=== PATIENT | female | born 1950 | race Caucasian/White ===

== ENCOUNTER → 2023-08-13 06:58 | Outpatient (REF) | payer MEDICARE, OTHER, SELFPAY | LOC: WDC 06:58 | PROVIDERS: ATTENDING PHYSICIAN Nurse Practitioner Adult Health | DX: Z12.31 Encounter for screening mammogram for malignant neoplasm of breast (principal) | CPT/HCPCS: 77063; 77067 ==

== ENCOUNTER 2023-10-24 17:36 | Emergency (ER) | payer MEDICARE, OTHER, SELFPAY ==
[2023-10-24 17:44] VITALS: BP 167/102
[2023-10-24 18:31] VITALS: BP 135/71; BMI 24.5
--- NOTE | 2023-10-24 19:45 | ED.GENMED ---
History of Present Illness
General
Chief Complaint: Headache
Source: patient
Exam Limitations: none
Time Seen by Provider: 10/24/23 19:36
History of Present Illness
History of Present Illness:
See MDM
Past History
Past History
ED Past Medical History: Asthma and HTN
ED Past Surgical History: Other (Gastric bypass)
Social History
Tobacco: Non-smoker
Alcohol: None
Phy Exam
Physical Exam
Physical Exam:
See MDM
Course
Orders/Labs/Results
Orders:
Orders
10/24/23 18:30
CT Head W/o Iv Contrast Urgent
Comment:
Reason For Exam: blurred vision
10/24/23 19:44
0.9% Sodium Chloride 1000 ml [Nss] 1,000 ml IV BOLUS
Butalb/Acetaminophen/Caffeine [Fioricet] 1 tab PO NOW STA
10/24/23 20:27
CRP [C-Reactive Protein] Urgent
Complete Blood Count/With Diff Urgent
Comprehensive Metabolic Panel Urgent
ESR [Erythrocyte Sed Rate] Urgent
Abnormal Lab Results
10/24/23
20:27
WBC 2.9 L 10^3/uL
(4.8-10.8)
RBC 3.78 L 10^6/uL
(4.20-5.40)
Hct 36.1 L %
(37.0-47.0)
MCH 33.3 H pg
(27.0-31.0)
Absolute Lymphs (auto) 1.1 L 10^3/uL
(1.2-3.4)
Monocytes % 9.8 H %
(1.7-9.3)
ESR 28 H mm/hour
(0-20)
Chloride 96 L mmol/L
(98-107)
Carbon Dioxide 33 H mmol/L
(22-30)
AST 38 H U/L
(14-36)
10/24/23 20:27
10/24/23 20:27
Vital Signs
Initial and Last Documented VS:
Initial Vital Signs
Temp Pulse Resp BP Pulse Ox
98.1 F 78 16 167/102 99
10/24/23 17:44 10/24/23 17:44 10/24/23 17:44 10/24/23 17:44 10/24/23 17:44
Last Documented Vital Signs
Temp Pulse Resp BP Pulse Ox
98.5 F 82 16 135/71 100
10/24/23 18:31 10/24/23 18:31 10/24/23 18:31 10/24/23 18:31 10/24/23 18:31
MDM/Problems Addressed
Differential Diagnosis Includes:
HPI and MDM Narrative:
72-year-old female presenting with headache and intermittent blurry vision. She was recently diagnosed with COVID a few days ago after returning home from a cruise ship. Patient states the headache is unrelieved with Tylenol. She cannot take
NSAIDs due to gastric bypass. She states she had left-sided blurry vision yesterday but is resolving on its own today.
CT was performed prior to my evaluation. CT head negative. Will give dose of Fioricet for headache. Although she has no blurry vision now, she has mild tenderness to left temporal artery palpation. Symptoms are still likely related to COVID but
will obtain ESR and CRP to rule out temporal arteritis
Physical exam
General: Well appearing and non-toxic
HEENT: protecting airway. Pupils equal reactive. EOMI. Mild tenderness to palpation of left temporal artery region
Neck: supple
CV: No evidence of cyanosis
Resp: No accessory muscle use
Abd: Non-distended
Extremities: No deformities
Neuro: alert
Psych: Normal affect
Skin: Intact
Problems Addressed including Acute and Chronic Conditions affecting care:
1. Headache
Acuity: acute
Prognosis: stable
Details: Likely in the setting of COVID. Will give Fioricet. Given that there is tenderness around the temporal artery area, will obtain ESR and CRP
Updates
On reassessment, headache is resolving. CRP within normal limits indicating giant cell arteritis less likely. ESR is only mildly elevated and likely related to active COVID infection. Discussed follow-up with PCP
Differential Diagnosis (but not limited to): Sinus headache, COVID, temporal arteritis
Testing considered: CTA but she has no focal neurodeficits
Drug therapy (if applicable): OTC meds, please see d/c instruction regarding Rx drugs
Amount and/or Complexity of Data Reviewed
Clinical info obtained from: Patient
External data reviewed: N/A
Labs I independently reviewed (but not limited to): CRP within normal notes. Leukopenia likely related to COVID
Radiology: The CT scan was personally and independently reviewed. In addition, official CT report reviewed.
Pulse Ox: not hypoxic
EKG independently reviewed: N/A
[place]ker: N/A
Critical Care: N/A
Risk of Complication:
Social Determinants of health: Good social support
Discussed with other providers: N/A
Escalation of Care includes Admit/Obs: After being observed in the Emergency Department, pt stable for discharge.
Occasional wrong word or 'sound a like' substitutions may have occurred due to the inherent limitations of voice recognition software. Read the chart carefully and recognize, using context, where substitutions have occurred.
*Critical Care Note
Total Time (30-74mins, 75-104mins- exclusive of procedures): Not Applicable
ED Attending Note
-
Portions of this chart may have been created with voice recognition software.� Occasional wrong word or��sound alike� substitutions may have occurred due to the inherent limitations of voice recognition software.
Discharge Plan
Departure
Patient Disposition: Home (Routine Discharge)
Date of Disposition: 10/24/23
Time of Disposition: 22:34
Patient with high blood pressure during this ER visit?: No
Discharge Problem:
Headache, COVID
Instructions: Headache, Adult (DC)
Prescriptions:
New
icdxdoqqek-upcorpmijvjay-rqzu [Fioricet] 50-300-40 mg capsule
1 cap PO BID Qty: 10 0RF
No Action
ipratropium bromide 1 SPRAY spray,non-aerosol
1 spray inhalation PRN PRN (Reason: allergies)
Centrum Complete 1 EACH tablet
1 ea PO DAILY
Probiotic and Acidophilus 1 EACH capsule
1 ea PO DAILY
polyethylene glycol 3350 17 GRAMS powder in packet
17 grams PO DAILY
calcium carbonate-vitamin D3 1 EACH tablet
2 ea PO DAILY
cholecalciferol (vitamin D3) [Vitamin D3] 125 mcg (5,000 unit) Tablet
125 mcg PO DAILY
omeprazole magnesium 20 mg Capsule,Delayed Release(Dr/Ec)
20 mg PO DAILY
docusate sodium 100 MG capsule
100 mg PO DAILY
vitamin H24-zbwwh acid 1,000-400 mcg Lozenge
1 lima SUBLINGUAL .3TIMESAWEEK
mupirocin 2 % ointment
1 applic topical BID Qty: 1 0RF
Patient Comments:
last dose was this am, 03/23/22
ondansetron HCl 4 mg tablet
4 mg PO Q6H PRN (Reason: nausea and vomiting) Qty: 20 0RF
acetaminophen [Acetaminophen Extra Strength] 500 mg tablet
1,000 mg PO Q6H Qty: 30 0RF
Rx Instructions:
DO NOT exceed >4000 mg daily.
docusate sodium [Colace] 100 mg capsule
100 mg PO BID Qty: 30 0RF
senna 8.6 mg capsule
17.2 mg PO BID Qty: 30 0RF
lisinopril 5 MG tablet
10 mg PO DAILY Qty: 1 0RF
Rx Instructions:
HOLD IF systolic blood pressure <130 while on Oxycodone
aspirin 325 mg capsule
81 mg PO DAILY
Rx Instructions:
Take daily x4 weeks for blood clot prevention; then resume Aspirin 81 mg daily.
Referrals:
Mnoica Barros CRNP [Family Provider] -
Activity Restrictions/Additional Instructions:
Please return for any worsening symptoms.
You may return at any time if you have further concerns.
Please follow up with your doctor at the first available appointment, preferably this week.
Thank you for choosing [facility].
Interventions
Interventions:
*Risk Screen - Suicide Last Done: 10/24/23 18:31
*General Assessment Last Done: 10/24/23 18:31
*Neglect/Abuse Screening Last Done: 10/24/23 18:31
ED- Fall Risk Assessment Last Done: 10/24/23 18:31
*ED COVID-19 Vaccine History Last Done: 10/24/23 18:31
ED- Neurological Assessment Last Done: 10/24/23 18:31
Discharge Date and Time
Print Language: MACEDONIAN
[2023-10-24] MEDS: FIORICET 1 TAB PO ×2 (19:57→23:52)
[2023-10-24 20:15] VITALS: BP 169/88
[2023-10-24] MEDS: NSS 1000 IV (20:26)
[2023-10-24 20:37] LABS: % Basophils 0.7 % (0-2); % Eosinophils 1.7 % (0-6); % Immature Granulocytes 0.3 % (0-0.5); % Monocytes 9.8 % (1.7-9.3); % Neutrophils 49.5 % (42.2-75.2); Absolute Eosinophils 0.1 10^3/uL (0-0.7); Absolute Lymphocytes 1.1 10^3/uL (1.2-3.4); Absolute Monocytes 0.3 10^3/uL (0.1-0.6); Absolute Neutrophils 1.4 10^3/uL (1.4-6.5); Hematocrit 36.1 % (37.0-47.0); Hemoglobin 12.6 g/dL (12.0-16.0); Mean Corp Hgb Conc. 34.9 g/dL (33.0-37.0); Mean Corpuscular Hgb 33.3 pg (27.0-31.0); Mean Corpuscular Volume 95.5 fL (81.0-99.0); Mean Platelet Volume 9.1 fL (7.4-10.4); Nucleated Red Blood Cells % 0 %; Platelet Count 256 10^3/uL (130-400); Red Blood Cell Count 3.78 10^6/uL (4.20-5.40); Red Cell Dist. Width 12.6 % (11.5-14.5); White Blood Cell Count 2.9 10^3/uL (4.8-10.8)
[2023-10-24 20:56] LABS: ALT (SGPT) 19 U/L (0-35); AST (SGOT) 38 U/L (14-36); Albumin 4.1 g/dl (3.5-5.0); Alkaline Phosphatase 85 U/L (38-126); Blood Urea Nitrogen 8 mg/dl (7-17); Calcium 9.3 mg/dl (8.4-10.2); Carbon Dioxide 33 mmol/L (22-30); Chloride 96 mmol/L (98-107); Estimated Creatinine Clearance 72 ml/min; Glucose 88 mg/dl (70-99); Potassium 3.9 mmol/L (3.5-5.1); Sodium 139 mmol/L (135-145); Total Bilirubin 0.4 mg/dl (0.2-1.3); Total Protein 6.6 g/dl (6.3-8.2); eGFR > 60.00
[2023-10-24 21:00] VITALS: BP 142/78
[2023-10-24 21:00] LABS: C-Reactive Protein < 5.00 mg/L (0.0-10.00)
[2023-10-24 21:43] LABS: Erythrocyte Sed Rate 28 mm/hour (0-20)
[2023-10-24 22:00] VITALS: BP 137/76
== END 2023-10-24 23:19 | disposition home or self-care (01) ==
LOC: EMR 17:36
PROVIDERS: EMERGENCY PHYSICIAN Student in an Organized Health Care Education/Training Program; FAMILY PHYSICIAN Nurse Practitioner Adult Health
DX: U07.1 COVID-19 (principal); R51.9 Headache, unspecified
CPT/HCPCS: 99284; 96360; 70450; 80053; 85025; 85652; 86140

== ENCOUNTER 2024-03-22 09:54 | Emergency (ER) | payer MEDICARE, OTHER, SELFPAY ==
[2024-03-22] VITALS (9 sets, daily range): BP systolic 139–160; BP diastolic 68–93; PULSE 78–91; BMI 28.4
[2024-03-22 11:33] LABS: % Basophils 1.1 % (0-2); % Eosinophils 0.9 % (0-6); % Immature Granulocytes 0.4 % (0-0.5); % Lymphocytes 17.6 % (20.5-51.1); % Monocytes 7.4 % (1.7-9.3); % Neutrophils 72.6 % (42.2-75.2); Absolute Basophils 0.1 10^3/uL (0-0.2); Absolute Lymphocytes 0.8 10^3/uL (1.2-3.4); Absolute Monocytes 0.3 10^3/uL (0.1-0.6); Absolute Neutrophils 3.4 10^3/uL (1.4-6.5); Hemoglobin 13.2 g/dL (12.0-16.0); Mean Corp Hgb Conc. 33.8 g/dL (33.0-37.0); Mean Corpuscular Volume 94.7 fL (81.0-99.0); Mean Platelet Volume 8.6 fL (7.4-10.4); Nucleated Red Blood Cells % 0 %; Platelet Count 330 10^3/uL (130-400); Red Blood Cell Count 4.12 10^6/uL (4.20-5.40); Red Cell Dist. Width 12.2 % (11.5-14.5); White Blood Cell Count 4.6 10^3/uL (4.8-10.8)
[2024-03-22 11:43] LABS: ALT (SGPT) 17 U/L (0-35); AST (SGOT) 34 U/L (14-36); Albumin 4.3 g/dl (3.5-5.0); Alkaline Phosphatase 89 U/L (38-126); Blood Urea Nitrogen 10 mg/dl (7-17); Calcium 9.7 mg/dl (8.4-10.2); Carbon Dioxide 33 mmol/L (22-30); Chloride 96 mmol/L (98-107); Estimated Creatinine Clearance 72 ml/min; Glucose 101 mg/dl (70-99); Potassium 4.1 mmol/L (3.5-5.1); Sodium 133 mmol/L (135-145); Total Bilirubin 0.7 mg/dl (0.2-1.3); Total Protein 7.2 g/dl (6.3-8.2); eGFR > 60.00
--- NOTE | 2024-03-22 14:47 | ED.GENMED ---
History of Present Illness
General
Chief Complaint: Blood Pressure Problem
Source: patient and family
Exam Limitations: none
Time Seen by Provider: 03/22/24 11:47
History of Present Illness
History of Present Illness:
73-year-old female who presents with dizziness. Patient states that started . She is concerned mostly because that she felt her blood pressure to be elevated. Also had a mild headache. She did take her lisinopril today. The patient
admits her blood pressure was on the 150s. She states that in bed when she wakes up she has room spinning dizziness. She does sometimes have difficulty with her right ear where she has some changes in her hearing. She has seen ENT in the past.
No ringing. No deafness. No fevers. No vomiting. No motor weakness.
Past History
Past History
ED Past Medical History: Asthma, HTN and Hypercholesterolemia
ED Past Surgical History: Other (Gastric bypass)
Social History
Tobacco: Non-smoker
Alcohol: None
Phy Exam
Physical Exam
Physical Exam:
CONSTITUTIONAL Patient alert and oriented to person, place and time. Well-appearing. Vital signs reviewed.
HEAD atraumatic, normocephalic.
EYES eyelids normal to inspection, Extraocular muscles intact, Conjunctiva normal, Sclera normal.
NECK normal range of motion, Trachea midline, no jugular venous distention.
RESPIRATORY CHEST No respiratory distress noted, Chest expansion equal, Bilateral breath sounds clear.
CARDIOVASCULAR regular rate and rhythm, Heart sounds normal.
ABDOMEN abdomen nontender, Bowel sounds normal. No distention.
BACK normal inspection, no obvious deformities
UPPER EXTREMITY range of motion normal, Motor strength normal, no cyanosis, no edema.
LOWER EXTREMITY range of motion normal, Motor strength normal, no cyanosis, no edema.
NEURO Speech normal, No focal motor deficits, [place] coma scale 15, Memory normal, Cranial Nerves intact to screening exam. Normal finger-nose. Normal [id number]. No pronator drift
SKIN skin warm, dry, and normal in color.
Course
Orders/Labs/Results
Orders:
Orders
03/22/24 11:23
Complete Blood Count/With Diff Urgent
Comprehensive Metabolic Panel Urgent
03/22/24 11:36
Electrocardiogram (*1) Urgent
Reason for Study: Vertigo / Dizzy
EKG- Treatment ONCE
03/22/24 12:17
CT Head W/o Iv Contrast Urgent
Comment:
Reason For Exam: dizziness
Abnormal Lab Results
03/22/24
11:23
WBC 4.6 L 10^3/uL
(4.8-10.8)
RBC 4.12 L 10^6/uL
(4.20-5.40)
MCH 32.0 H pg
(27.0-31.0)
Absolute Lymphs (auto) 0.8 L 10^3/uL
(1.2-3.4)
Lymphocytes % 17.6 L %
(20.5-51.1)
Sodium 133 L mmol/L
(135-145)
Chloride 96 L mmol/L
(98-107)
Carbon Dioxide 33 H mmol/L
(22-30)
Glucose 101 H mg/dl
(70-99)
03/22/24 11:23
03/22/24 11:23
Vital Signs
Initial and Last Documented VS:
Initial Vital Signs
Pulse Resp BP Pulse Ox
80 16 159/90 99
03/22/24 10:01 03/22/24 10:01 03/22/24 10:01 03/22/24 10:01
Last Documented Vital Signs
Temp Pulse Resp BP Pulse Ox
97.6 F 71 12 148/76 98
03/22/24 10:03 03/22/24 14:30 03/22/24 14:30 03/22/24 14:10 03/22/24 14:30
MDM/Problems Addressed
MDM/Problems Addressed:
Vertigo, uncontrolled hypertension
*Radiology
Radiology exam reviewed: radiology read reviewed
*Pulse Oximetry
Patient hypoxic: no
*EKG
Interpreted by ED Provider?: Yes
Interpretation: normal
Rate: normal
Rhythm: sinus
[place]: normal axis
Interval: normal interval
Ischemia: no ischemia
*Compliance Assistant Interpretation
Rate: normal
Interpretation: normal
Rhythm: sinus
*Critical Care Note
Total Time (30-74mins, 75-104mins- exclusive of procedures): Not Applicable
Data Reviewed
Source: patient
Prescriptions/Medications Considered But Not Given:
Considered Antivert but no dizziness on exam
Patient Management
Escalation/DeEscalation of care consider admission/obs:
Patient appears well. CT negative. Low suspicion for central vertigo. Symptoms have been ongoing since . Blood pressure improved without intervention. She will follow-up with her PCP regarding her blood pressure. In addition
recommended close outpatient ENT versus PCP follow-up regarding dizziness. Offer Antivert for as needed use
ED Attending Note
-
Portions of this chart may have been created with voice recognition software.� Occasional wrong word or��sound alike� substitutions may have occurred due to the inherent limitations of voice recognition software.
Discharge Plan
Departure
Patient Disposition: Home (Routine Discharge)
Date of Disposition: 03/22/24
Time of Disposition: 14:53
Patient with high blood pressure during this ER visit?: Yes
Discharge Problem:
Vertigo, Uncontrolled hypertension
Instructions: Vertigo (a type of dizziness), High Blood Pressure (DC), BLOOD PRESSURE
Prescriptions:
New
meclizine 25 mg tablet
25 mg PO TID PRN (Reason: dizziness) Qty: 14 0RF
No Action
ipratropium bromide 1 SPRAY spray,non-aerosol
1 spray inhalation PRN PRN (Reason: allergies)
Centrum Complete 1 EACH tablet
1 ea PO DAILY
Probiotic and Acidophilus 1 EACH capsule
1 ea PO DAILY
polyethylene glycol 3350 17 GRAMS powder in packet
17 grams PO DAILY
calcium carbonate-vitamin D3 1 EACH tablet
2 ea PO DAILY
cholecalciferol (vitamin D3) [Vitamin D3] 125 mcg (5,000 unit) Tablet
125 mcg PO DAILY
omeprazole magnesium 20 mg Capsule,Delayed Release(Dr/Ec)
20 mg PO DAILY
docusate sodium 100 MG capsule
100 mg PO DAILY
vitamin V01-oftgb acid 1,000-400 mcg Lozenge
1 lima SUBLINGUAL .3TIMESAWEEK
mupirocin 2 % ointment
1 applic topical BID Qty: 1 0RF
Patient Comments:
last dose was this am, 03/23/22
ondansetron HCl 4 mg tablet
4 mg PO Q6H PRN (Reason: nausea and vomiting) Qty: 20 0RF
acetaminophen [Acetaminophen Extra Strength] 500 mg tablet
1,000 mg PO Q6H Qty: 30 0RF
Rx Instructions:
DO NOT exceed >4000 mg daily.
docusate sodium [Colace] 100 mg capsule
100 mg PO BID Qty: 30 0RF
senna 8.6 mg capsule
17.2 mg PO BID Qty: 30 0RF
lisinopril 5 MG tablet
10 mg PO DAILY Qty: 1 0RF
Rx Instructions:
HOLD IF systolic blood pressure <130 while on Oxycodone
aspirin 325 mg capsule
81 mg PO DAILY
Rx Instructions:
Take daily x4 weeks for blood clot prevention; then resume Aspirin 81 mg daily.
ezhjgdnkho-wckkcitqmqezq-ngft [Fioricet] 50-300-40 mg capsule
1 cap PO BID Qty: 10 0RF
Referrals:
Monica Barros CRNP [Family Provider] -
Activity Restrictions/Additional Instructions:
Return immediately for numbness, tingling, motor weakness, headache, vomiting, difficulty walking, or any other concerns. Please see your doctor in the next 3 to 5 days for follow-up and reevaluation.
Your blood pressure was elevated while in the Emergency Department, please have your doctor re-evaluate it in the next 48 hours as untreated hypertension may lead to serious complications.
Interventions
Interventions:
*Risk Screen - Suicide Last Done: 03/22/24 11:15
*General Assessment Last Done: 03/22/24 11:15
*Neglect/Abuse Screening Last Done: 03/22/24 11:15
*ED COVID-19 Vaccine History Last Done: 03/22/24 11:15
ED- Cardiac Assessment Last Done: 03/22/24 11:22
ED- Neurological Assessment Last Done: 03/22/24 11:22
ED- Pulmonary Assessment Last Done: 03/22/24 11:22
Discharge Date and Time
Print Language: ETHIOPIAN
== END 2024-03-22 15:22 | disposition home or self-care (01) ==
LOC: EMR 09:54
PROVIDERS: EMERGENCY PHYSICIAN Emergency Medicine; FAMILY PHYSICIAN Nurse Practitioner Adult Health
DX: R42 Dizziness and giddiness (principal); I10 Essential (primary) hypertension; R51.9 Headache, unspecified; J45.909 Unspecified asthma, uncomplicated; E78.00 Pure hypercholesterolemia, unspecified; Z98.84 Bariatric surgery status
CPT/HCPCS: 99284; 70450; 80053; 85025; 93005

== ENCOUNTER → 2024-05-04 08:54 | Outpatient (REF) | payer MEDICARE, OTHER, SELFPAY | LOC: HWRAD 08:54 | PROVIDERS: ATTENDING PHYSICIAN Podiatrist Foot & Ankle Surgery; FAMILY PHYSICIAN Nurse Practitioner Adult Health | DX: M20.11 Hallux valgus (acquired), right foot (principal); M20.12 Hallux valgus (acquired), left foot | CPT/HCPCS: 73630 ==

== ENCOUNTER → 2024-08-17 07:35 | Outpatient (REF) | payer MEDICARE, OTHER, SELFPAY | LOC: WDC 07:35 | PROVIDERS: ATTENDING PHYSICIAN Nurse Practitioner Adult Health | DX: Z12.31 Encounter for screening mammogram for malignant neoplasm of breast (principal) | CPT/HCPCS: 77063; 77067 ==

== ENCOUNTER → 2024-09-14 07:44 | Outpatient (REF) | payer MEDICARE, OTHER, SELFPAY | LOC: HWRAD 07:44 | PROVIDERS: ATTENDING PHYSICIAN Nurse Practitioner Adult Health | DX: Z78.0 Asymptomatic menopausal state (principal) | CPT/HCPCS: 77080 ==